=== PATIENT | female | born 2000 | race Caucasian/White ===

== ENCOUNTER 2023-05-12 20:37 | Emergency (ER) | payer OTHER ==
[~2023-05-12 20:37] MED LIST: fentaNYL 100 MCG/2 ML SDV IVPUSH ONE
[2023-05-12] MEDS: Sodium Chloride 0.9% 1,000 ML IV ONE (20:37)
[2023-05-12 20:59] LABS: BASOPHILS ABSOLUTE AUTO 0.02 K/uL (0.02-0.10); BASOPHILS PERCENT AUTO 0.4 % (0.0-0.5); EOSINOPHILS ABSOLUTE AUTO 0.04 K/uL (0.04-0.40); EOSINOPHILS PERCENT AUTO 0.9 % (1.0-5.0); HEMOGLOBIN 15.1 g/dL (11.5-16.5); LYMPHOCYTES ABSOLUTE AUTO 1.79 K/uL (1.50-4.00); LYMPHOCYTES PERCENT AUTO 38.7 % (20.0-40.0); MEAN CORPUSCULAR HEMOGLOBIN 29.4 pg (27.0-32.0); MEAN CORPUSCULAR HGB CONC 33.6 g/dL (31.0-35.0); MEAN CORPUSCULAR VOLUME 88 fL (76-96); MEAN PLATELET VOLUME 9.7 fL (6.0-10.0); MONOCYTES PERCENT AUTO 6.5 % (3.0-10.0); NEUTROPHILS ABSOLUTE AUTO 2.48 K/uL (2.00-7.50); NEUTROPHILS PERCENT AUTO 53.5 % (45.0-70.0); PLATELET COUNT,PLT 287 K/uL (150-500); RED BLOOD CELL COUNT 5.13 M/uL (3.80-5.80); RED CELL DISTRIBUTION WIDTH 13.3 % (11.0-16.0); WHITE BLOOD CELL COUNT,WBC 4.6 K/uL (4.0-11.0)
[2023-05-12 21:11] LABS: A/G RATIO 1.3 (0.8-2.0); ALANINE AMINOTRANSFERASE,ALT 28 U/L (12-78); ALBUMIN 4.6 g/dL (3.4-5.0); ALKALINE PHOSPHATASE 80 U/L (46-116); ANION GAP 14.5 mmol/L (5.0-15.0); ASPARTATE AMNIOTRANSFERASE,AST 32 U/L (15-37); BILIRUBIN TOTAL 0.4 mg/dL (0.0-1.0); BLOOD UREA NITROGEN,BUN 7 mg/dL (8-26); CALCIUM 8.7 mg/dL (8.5-10.1); CARBON DIOXIDE,CO2 27.9 mmol/L (21.0-32.0); CHLORIDE,CL 108 mmol/L (98-107); CREATININE 0.88 mg/dL (0.55-1.02); ESTIMATED GFR 96 mL/min (>60); GLUCOSE RANDOM 92 mg/dL (74-100); POTASSIUM,K 3.4 mmol/L (3.5-5.1); PROTEIN TOTAL,TP 8.2 g/dL (6.4-8.2); SODIUM,NA 147 mmol/L (136-145)
[2023-05-12 21:13] LABS: APPEARANCE,URINE CLEAR (CLEAR); BILIRUBIN,URINE NEGATIVE (NEGATIVE); COLOR,URINE YELLOW; GLUCOSE,URINE NEGATIVE (NEGATIVE); KETONES,URINE NEGATIVE (NEGATIVE); LEUKOCYTE ESTERASE,URINE NEGATIVE (NEGATIVE); NITRITE,URINE NEGATIVE (NEGATIVE); OCCULT BLOOD,URINE SMALL (NEGATIVE); PROTEIN,URINE TRACE mg/dL (NEGATIVE); UROBILINOGEN,URINE 0.2 E.U./dL (0.2-1.0)
[2023-05-12 21:20] LABS: WBC,URINE 0-5 /HPF
[2023-05-12 21:21] LABS: SQUAMOUS EPITHELIAL CELLS,UR OCCASIONAL /HPF
[2023-05-12 21:22] LABS: AMPHETAMINES SCREEN, URINE NEGATIVE (NEGATIVE); BARBITURATE SCREEN,URINE NEGATIVE (NEGATIVE); BENZODIAZEPINES SCREEN,URINE NEGATIVE (NEGATIVE); METHADONE SCREEN, URINE NEGATIVE (NEGATIVE); METHAMPHETAMINES SCREEN, URINE NEGATIVE (NEGATIVE); OXYCODONE SCREEN,URINE NEGATIVE (NEGATIVE); THC SCREEN,URINE 50 NG/ML POSITIVE (NEGATIVE)
[2023-05-12 21:40] LABS: PROTHROMBIN TIME 10.5 sec (9.0-11.5)
[2023-05-12] MEDS ORDERED: Sodium Chloride 0.9% 10 ML Syringe FLUSH PRN (23:43)
[2023-05-13] MEDS: Sodium Chloride 0.9% 1,000 ML IV ONE (00:13)
== END 2023-05-12 21:25 ==
LOC: LB.ED 20:37
DX: S06.0X1A Concussion with loss of consciousness of 30 minutes or less, initial encounter (principal); M25.511 Pain in right shoulder; Z88.0 Allergy status to penicillin; V86.55XA Driver of 3- or 4- wheeled all-terrain vehicle (ATV) injured in nontraffic accident, initial encounter; Y92.410 Unspecified street and highway as the place of occurrence of the external cause
CPT/HCPCS: 36415; 51702; 71045; 72170; 80053; 80307; 81001; 81025; 83605; 83690; 84484; 85025; 85610; 85730; 99285; A0425; A0429; J3010; J7030